=== PATIENT | female | born 1985 | race Caucasian/White ===

== ENCOUNTER 2017-04-30 16:01 | Emergency (ER) | payer SELFPAY ==
[~2017-04-30] VITALS: Ht 157.5 cm; Wt 105.9 kg
[2017-04-30 16:40] VITALS: BP 117/87
== END 2017-04-30 18:50 | disposition left against medical advice (07) ==
LOC: EME 16:01
DX: M54.5 Low back pain (principal); Z53.21 Procedure and treatment not carried out due to patient leaving prior to being seen by health care provider